=== PATIENT | female | born 1960 | race Caucasian/White ===

== ENCOUNTER → 2020-08-29 | Outpatient (CLI) | payer OTHER ==
--- NOTE | 2020-08-29 12:35 | Diagnostic Imaging Report ---
INDICATION: Postmenopausal. COMPARISON: None FINDINGS: The bone mineral density of the hips and spine was measured. The T score for the spine is 0.2. The total T score for the left hip is 0.01 and for the right hip 0.1. These values are within normal limits. The T score for each femoral neck is -1.0. This value is at the lowest end of normal. AP Spine L1-L4: [BMD (g/cm2): 1.227] [T-Score: 0.2] [Z-Score: 1.3] [BMD Previous: NA] [BMD % Change: NA] LT Hip Neck: [BMD (g/cm2): 0.894] [T-Score: -1.0] [Z-Score: 0.1] LT Hip Total: [BMD (g/cm2):1.011] [T-Score:0.0] [Z-Score: 0.8] [BMD Previous: NA] [BMD % Change: NA] RT Hip Neck: [BMD (g/cm2):0.895] [T-Score:-1.0] [Z-Score:0.1] RT Hip Total: [BMD (g/cm2):1.015] [T-score:0.1] [Z-Score:0.9] [BMD Previous:NA] [BMD % Change:NA] *Indicates significant change from prior examination based on 95% confidence level. World Health Organization criteria for BMD interpretation classify patients as Normal (T-score at or above -1.0), Osteopenic (T-score between -1.0 and -2.5) or Osteoporotic (T-score at or below -2.5). LIMITATIONS AND MODIFICATION: None. FRACTURE RISK (FRAX SCORE): The ten year probability of (%): Major Osteoporotic Fracture: [NA] Hip Fracture: [NA] IMPRESSION: 1. The bone mineral density of the hips, spine and femoral necks is within normal limits. The T-scores for the femoral necks are at the lowest end of normal however. 2. 3. See below National Osteoporosis Foundation guidelines on when to potentially initiate pharmacologic therapy. Based on the National Osteoporosis Foundation Guidelines, pharmacologic treatment should be initiated in any of the following, unless clinical conditions suggest otherwise: * Any patient with prior fragility fracture of the hip or vertebrae. A spine fracture indicates 5X risk for subsequent spine fracture and 2X risk for subsequent hip fracture. * Osteoporosis (T-score <-2.5). * Postmenopausal women and men age 50 and older with low bone mass/osteopenia (T-score between -1.0 and -2.5) by DXA and 10-year major osteoporotic fracture greater than 20% or a 10-year probability of hip fracture greater than 3%. These fracture risks are supplied above in the FRAX score, if applicable. * Clinician judgement and/or patient preferences may indicate treatment for people with 10-year fracture probabilities above or below these levels. Dictated by: Dictated on workstation # [id number]
== END ==
LOC: RAD 11:59
PROVIDERS: ATTEND Nurse Practitioner
DX: Z78.0 Asymptomatic menopausal state (principal)
CPT/HCPCS: 77080

== ENCOUNTER → 2022-12-12 | Outpatient (CLI) | payer OTHER ==
--- NOTE | 2022-12-12 17:24 | Diagnostic Imaging Report ---
CLINICAL HISTORY: History of psoriatic arthritis. Bilateral foot pain. COMPARISON: None. TECHNIQUE: Six views of the bilateral feet. FINDINGS: There is no acute fracture or dislocation of the bilateral feet. Alignment is anatomic. Mild degenerative changes are present in the feet with marginal osteophyte formation. No advanced erosive changes are seen in the feet. No suspicious focal osseous lesions. The surrounding soft tissues are normal. IMPRESSION: 1. No acute fracture or dislocation in the bilateral feet. 2. Mild degenerative changes in the feet. Dictated by: Dictated on workstation # [id number]
--- NOTE | 2022-12-12 17:26 | Diagnostic Imaging Report ---
INDICATION: Pain FINDINGS: There is an arthritic joint space narrowing at the distal and proximal interphalangeal joints relatively equal bilaterally. No substantial soft tissue swelling. No abnormal calcifications. No bony destruction. No gas, foreign body or fracture. 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 There is an ossicle or an old avulsion off the tip of the right ulnar styloid. There is right greater than left radiocarpal arthritic joint space narrowing. IMPRESSION: Arthritic pattern without randy erosion or abnormal soft tissue calcification. No acute appearing bony pathology. Dictated by: Dictated on workstation # [id number]
== END ==
LOC: RAD FS 15:00
PROVIDERS: ATTEND Colon & Rectal Surgery
DX: L40.59 Other psoriatic arthropathy (principal)